=== PATIENT | male | born 1955 | race Caucasian/White ===

== ENCOUNTER → 2019-07-18 10:13 | Outpatient (BNVA) | payer MEDICARE, SELFPAY | PROVIDERS: Family Provider Nurse Practitioner Family; PCP Nurse Practitioner Family; Visit Provider Specialist | DX: G35 Multiple sclerosis (principal) | CPT/HCPCS: 96374; 96375; 96413; 96415; 99214; J1200; J2350; J2930; J7040 ==

== ENCOUNTER 2019-08-16 08:29 | Outpatient (CLI) | payer MEDICARE, SELFPAY ==
--- NOTE | 2019-08-16 08:46 | MR_ITS ---
WS: [id number] MRI BRAIN WITH AND WITHOUT CONTRAST HISTORY: MS COMPARISON: 11/04/2017 and 05/05/2016 TECHNIQUE: Multiplanar imaging performed through the brain with Prohance 16 ml's IV. No acute infarcts. The pericallosal and corpus callosal white matter lesions which are perpendicular are again identified. There is been slight increase in the number of lesions on the LEFT. There is a new nonenhancing white matter lesion in the coronary radiata and also adjacent to the anterior horn o f the LEFT lateral ventricle. None of these lesions enhance. No enhancing masses. No signal abnormali ties noted within the alecia, brainstem or cerebellum. No susceptibility artifacts or prior lacunar infarcts. Ventricles and extra-axial spaces are normal. Clivus and pituitary gland are normal. Visualized posterior fossa and brainstem are also normal. No enhancing masses. Demyelinating lesions are nonenhancing. Dural venous sinuses are normal. Paranasal sinuses: Mucoperiosteal thickening in the maxillary sinuses with maxillary mucous retention cyst. No air-fluid levels. Mastoid air cells: Normal. Calvarium and scalp: Normal. MR/MR head wo/w con [id number] IMPRESSION: 1. Demyelinating plaques consistent with multiple sclerosis. There is a minima l increase in number of demyelinating plaques in the LEFT cerebrum. No enhancem ent. 2. No demyelinating lesions in the brainstem or cerebellum.
--- NOTE | 2019-08-16 08:46 | MR_ITS ---
WS: [id number] MRI CERVICAL SPINE with and without contrast. HISTORY: MS COMPARISON: 11/04/2017 Multiplanar multisequence sagittal imaging is performed with and without IV contrast. Mild LEFT convex curvature of the cervical spine with increase in thoracic kyphosis. Multilevel degen erative disc disease and osteophytosis throughout the cervical spine. There is significant artifact i n the cervical spine probably due to motion and swallowing. Abnormal signal in the anterior cervical cord at this C2 and C3 levels is not as well visualized on t his examination due to the motion. Do not believe there has been a significant progression. No enhanc ement identified. Craniocervical junction, C1 and C2 relationship, odontoid process and soft tissues are normal. C2-C3: Normal. C3-C4: Extensive osteophytic ridging and disc bulging. Osteophyte encroachment upon the ventral theca l sac with mild central and bilateral foraminal narrowing. Nerve roots in the RIGHT foramen are being displaced posteriorly by osteophyte disease. C4-C5: Diffuse osteophytic ridging and disc bulging. Moderate central and severe bilateral foraminal stenosis. C5-C6: Diffuse annular disc bulging and osteophytic ridging. Moderate bilateral foraminal stenosis. C6-C7: Diffuse annular disc bulging and osteophyte disease. Moderate bilateral foraminal narrowing. C7-T1: Annular disc bulging and disc osteophyte complexes. Moderate LEFT and mild RIGHT foraminal sandy nosis. No enhancing lesions are throughout the cervical cord. MR/MR cervical spine wo/w [id number] IMPRESSION: 1. Quality of the examination is limited due to motion. 2. Previously described demyelinating lesions at the C2 and C3 levels have not significantly progressed in size and no new lesions or enhancing lesions are i dentified. Due to the quality of the examination small subtle lesions would eas ryann be obscured. 3. Multilevel disc osteophyte complexes resulting in foraminal and central sandy nosis as above. Very similar to the prior study of 11/04/2017. Most significant s tenosis at C4-5 level.
[2019-08-16 09:50] LABS: Blood Urea Nitrogen 18 mg/dL (8-23); Glomerular Filtration Rate 67.8 mL/min (90-130)
== END 2019-08-16 08:30 | disposition home or self-care (01) ==
LOC: RADWPI 08:33
PROVIDERS: Family Provider Nurse Practitioner Family; PCP Nurse Practitioner Family; Visit Provider Specialist
DX: G35 Multiple sclerosis (principal); M25.78 Osteophyte, vertebrae; M48.02 Spinal stenosis, cervical region
CPT/HCPCS: 70553; 72156; 82565; 84520; A9579

== ENCOUNTER 2020-01-15 08:24 | Outpatient (CLI) | payer MEDICARE, SELFPAY ==
[2020-01-15] MEDS: diphenhydrAMINE 50 mg/mL SDV 1mL 25 MG IVP ×2 (08:50→11:09)
[2020-01-15] MEDS: acetaminophen 500 mg Tablet 1000 MG PO (10:00)
--- NOTE | 2020-01-15 11:03 | PC.NURSE ---
Patient has complaints of itching, no visual rash observed. IV stopped, physician notified. Additional 25 mg Benadryl given IVP by Dr. Traci King over 1 minute. IV Ocrevus re-initiated at 200 mls/hr.
== END 2020-01-15 08:25 | disposition home or self-care (01) ==
LOC: NSACUTE 08:26
PROVIDERS: Family Provider Nurse Practitioner Family; PCP Nurse Practitioner Family; Visit Provider Specialist
DX: G35 Multiple sclerosis (principal); Z87.891 Personal history of nicotine dependence
CPT/HCPCS: 96365; 96366; 96375; 99214; J1200

== ENCOUNTER 2020-07-08 09:03 | Outpatient (CLI) | payer MEDICARE, SELFPAY ==
[2020-07-08] MEDS: acetaminophen 500 mg Tablet 1000 MG PO (09:00)
[2020-07-08] MEDS: diphenhydrAMINE 50 mg/mL SDV 1mL 25 MG IVP (09:30)
== END 2020-07-08 09:04 | disposition home or self-care (01) ==
LOC: NSACUTE 09:05
PROVIDERS: Family Provider Nurse Practitioner Family; PCP Nurse Practitioner Family; Visit Provider Specialist
DX: G35 Multiple sclerosis (principal); M96.1 Postlaminectomy syndrome, not elsewhere classified; Z87.891 Personal history of nicotine dependence
CPT/HCPCS: 96365; 96366; 96375; 99214; J1200; J2350; J2930; J7040

== ENCOUNTER 2020-12-31 06:50 | Outpatient (CLI) | payer MEDICARE, SELFPAY ==
--- NOTE | 2020-12-31 07:15 | MR_ITS ---
WS: [id number] MRI HEAD WITH CONTRAST TECHNIQUE: Sagittal T1, T2 axial, T2 axial FLAIR, axial susceptibility weighted imaging, axial diffus ion weighted images, and coronal T2 images were obtained. Pre and post-T1 axial and post T1 coronal i mages. ADC and FSPGR images. CLINICAL INFORMATION: G35 - Multiple sclerosis COMPARISON: August 2019, November 2017, April 2016 FINDINGS: No evidence restricted diffusion to suggest acute ischemia. Ventricular system and basal cisterns are patent. Moderate patchy supratentorial white matter changes consistent with chronic demyelinating pl aques. The number and distribution of lesions is unchanged from previous. No evidence of progression. Mild diffuse thinning of the corpus callosum is unchanged. No abnormal gadolinium enhancement to ind icate active disease. Moderate T1 hypointense lesion load. Normal optic chiasm and pituitary infundibulum. Mild to moderate symmetric atrophy temporal lobes and hippocampal formations. Moderate parenchymal volume loss. Moderate mucosal thickening paranasal sinu ses. Opacification of the frontal ethmoidal recesses bilaterally. MR/MR head wo/w con [id number] IMPRESSION: 1. Moderate patchy supratentorial white matter changes consistent with chronic demyelinating plaques. 2. Lesion burden is unchanged from previous. No evidence of disease progressio n. 3. Mild diffuse thinning of the corpus callosum. Moderate parenchymal volume l oss. 4. Moderate T1 hypointense lesion load is unchanged. 5. No abnormal gadolinium enhancement to indicate acute disease. 6. No hemosiderin on the susceptibly weighted images.
[2020-12-31] MEDS: gadobenate dimeglumine 20 mL vial IV (08:35)
--- NOTE | 2020-12-31 08:45 | MR_ITS ---
WS: [id number] MRI CERVICAL SPINE NONCONTRAST AND CONTRAST TECHNIQUE: Sagittal T1, T2 and STIR imaging. Axial T2, gradient, and fiesta imaging. Post gadolinium imaging was obtained. CLINICAL INFORMATION: G35 - Multiple sclerosis COMPARISON: August, November 2017, April 2016 FINDINGS: Straightening of the normal cervical lordosis. No high-grade central canal narrowing. Moderate spondy litic changes. Chronic demyelinating plaques in the cervical cord. No significant cord atrophy. Enhan cement at the T1-2 level appears superficial. Chronic demyelinating plaques most prominent dorsal C2 and ventral C3. Visualized upper thoracic cord appears normal. C2-C3: Normal. C3-C4: Disc osteophyte complex with endplate ridging. Mild central canal stenosis. Moderate bilateral bony foraminal narrowing. Mild facet arthropathy. C4-C5: Disc osteophyte complex with endplate ridging. Moderate bilateral bony foraminal narrowing. Mi ld facet arthropathy. Mild central canal stenosis. C5-C6: Disc osteophyte complex with endplate ridging. Moderate left and mild right bony foraminal katie rowing. Mild central canal stenosis. C6-C7: Disc osteophyte complex with endplate ridging. Mild left and no significant right foraminal na rrowing. C7-T1: Left eccentric disc osteophytic ridging. Mild left and no significant right foraminal narrowin g. Spinal canal is patent. Visualized brain stem structures: Normal. Prevertebral soft tissues: Normal. MR/MR cervical spine wo/w [id number] IMPRESSION: 1. Chronic demyelinating plaques in the cervical cord described above. No visu alized new lesions. 2. No significant cord atrophy. 3. No enhancing lesions to indicate active disease. Incidental superficial cor d enhancement at the T1-2 level appears leptomeningeal. 4. Moderate spondylitic changes with mild central canal stenosis C3-C4, C4-C5 and C5-C6. 5. Multilevel bony foraminal narrowing worse at bilateral C3-4, bilateral C4-5 , and left C5-C6.
== END 2020-12-31 06:51 | disposition home or self-care (01) ==
LOC: RADSHAW 06:56
PROVIDERS: PCP Nurse Practitioner Family; Visit Provider Specialist
DX: G35 Multiple sclerosis (principal); M48.02 Spinal stenosis, cervical region
CPT/HCPCS: 70553; 72156; A9577

== ENCOUNTER 2020-12-31 10:54 | Outpatient (CLI) | payer MEDICARE, SELFPAY ==
[2020-12-31] MEDS: acetaminophen 500 mg Tablet 1000 MG PO (11:14)
[2020-12-31] MEDS: diphenhydrAMINE 50 mg/mL SDV 1mL IVP (11:30)
--- NOTE | 2020-12-31 15:14 | PC.NURSE ---
Wrong order was selected. Ocrevus was started and titrated according to guidelines.
== END 2020-12-31 10:55 | disposition home or self-care (01) ==
LOC: NSACUTE 10:59
PROVIDERS: PCP Nurse Practitioner Family; Visit Provider Specialist
DX: G35 Multiple sclerosis (principal); M96.1 Postlaminectomy syndrome, not elsewhere classified; Z87.891 Personal history of nicotine dependence; M48.02 Spinal stenosis, cervical region
CPT/HCPCS: 70553; 72156; 96365; 96366; 96375; 99214; A9577; J1200; J2350; J2930; J7040

== ENCOUNTER 2021-01-15 12:19 | Outpatient (CLI) | payer MEDICARE, SELFPAY ==
--- NOTE | 2021-01-15 12:33 | MR_ITS ---
WS: [id number] MRI THORACIC SPINE WITH CONTRAST TECHNIQUE: Sagittal T1, T2 and STIR imaging. Axial T2 imaging. Post gadolinium imaging was obtained. CLINICAL INFORMATION: G35 - Multiple sclerosis COMPARISON: None. FINDINGS: Mild thoracic curve. Mild thoracic kyphosis. No acute compression fractures. No high-grade central ca nal stenosis. Tiny syrinx within the thoracic core appears unchanged from previous. This measures son roximately 2 mm in maximum AP dimension. No abnormal gadolinium enhancement. Tiny central syrinx exte nding from T4 to T10 unchanged from previous. This is most prominent at T8-T10 measuring 2 mm in maxi mum AP dimension. No abnormal gadolinium enhancement. No enhancing lesions to indicate active disease . Tiny eccentric chronic demyelinating lesion at T3-T4. Mild spondylitic changes thoracic spine. Small disc protrusions more prominent at T7-8, T11-12, and T 12-L1. No significant central canal stenosis. Moderate facet arthropathy lower thoracic spine. Mild b ilateral T10-11, T11-12 and right T12-L1 bony foraminal narrowing. Normal caliber visualized thoracic aorta. MR/MR thoracic spine wo/w [id number] IMPRESSION: 1. Mild thoracic kyphosis. No acute compression fractures. 2. Tiny thoracic cord syrinx most prominent at T8-T10 measuring 2 mm in maximu m AP dimension unchanged from previous. 3. Chronic eccentric demyelinating lesion at T3-4 unchanged. 4. No significant cord atrophy. 5. A few small disc protrusions described above unchanged from previous.
--- NOTE | 2021-01-15 12:33 | MR_ITS ---
WS: [id number] MRI LUMBAR SPINE NONCONTRAST TECHNIQUE: Sagittal T1, T2 and STIR imaging. Axial T1 and T2 imaging. CLINICAL INFORMATION: G35 - Multiple sclerosis COMPARISON: MRI and CT FINDINGS: Mild lumbar curve. No acute compression. Retrolisthesis L2 on L3. Pedicle screw fixation L3-S1. Sever e central canal stenosis L2-3. This is slightly progressed since but not significantly zhang ed. Disc space narrowing at L2-3 has progressed slightly. L1-L2: Normal. L2-L3: Retrolisthesis L2 on L3. Disc desiccation is progressed at this level compared to previous. Se hannah central canal stenosis with moderate facet arthropathy and ligamentum flavum hypertrophy. Severe left and moderate right bony foraminal narrowing. L3-L4: Prior postoperative changes pedicle screw fixation with laminectomy defects. Spinal canal is p atent. Mild to moderate left and no significant right foraminal narrowing. L4-L5: Pedicle screw fixation with laminectomy defects. Disc osteophytic ridging with mild bilateral foraminal narrowing. Moderate facet arthropathy. L5-S1: Pedicle screw fixation. Laminectomy defects. Left eccentric osteophytic ridging. Mild to moder ate left and no significant right foraminal narrowing. Moderate facet arthropathy. Tortuous and slightly aneurysmal abdominal aorta is partially visualized and appears unchanged. This measures approximately 3.0 x 3.1 cm. MR/MR lumbar spine wo con* [id number] IMPRESSION: 1. Prior postoperative changes pedicle screw fixation L3-S1 with laminectomy d efects. 2. Slight retrolisthesis L2 on L3 with severe central canal stenosis appears s lightly progressed compared to previous. Slightly progressed disc desiccation L 2-3. 3. No other significant interval changes. 4. Moderate to severe left L2-3 and mild right L2-3 bony foraminal narrowing. 5. Mild left L3-4 and mild bilateral L4-5 bony foraminal narrowing. 6. Mild to moderate left L5-S1 bony foraminal narrowing.
[2021-01-15] MEDS: gadobenate dimeglumine 20 mL vial IV (13:55)
== END 2021-01-15 12:20 | disposition home or self-care (01) ==
PROVIDERS: PCP Nurse Practitioner Family; Visit Provider Specialist
DX: G35 Multiple sclerosis (principal); M96.1 Postlaminectomy syndrome, not elsewhere classified; M51.24 Other intervertebral disc displacement, thoracic region
CPT/HCPCS: 72148; 72157; A9577

== ENCOUNTER 2021-06-23 09:52 | Outpatient (CLI) | payer MEDICARE, SELFPAY ==
[2021-06-23 10:22] VITALS: BP 134/75; PULSE 60; RESP 18; TEMP 37.1; O2SAT 98
[2021-06-23] MEDS: sodium chloride 0.9% 250 ML 50 ML IV (10:32)
[2021-06-23] MEDS: acetaminophen 500 mg Tablet 1000 MG PO (10:33)
[2021-06-23] MEDS: diphenhydrAMINE 50 mg/mL SDV 1mL 25 MG IV (10:35)
[2021-06-23 11:04] VITALS: BP 121/62; PULSE 57; RESP 16; TEMP 36.9; O2SAT 96
[2021-06-23 11:41] VITALS: BP 120/67; PULSE 56; RESP 16; TEMP 36.8; O2SAT 97
[2021-06-23 13:14] VITALS: BP 121/63; PULSE 60; RESP 16; TEMP 36.8; O2SAT 96
== END 2021-06-23 09:53 | disposition home or self-care (01) ==
LOC: ONCMED 09:58
PROVIDERS: PCP Nurse Practitioner Family; Visit Provider Specialist
DX: G35 Multiple sclerosis (principal); Z87.891 Personal history of nicotine dependence
CPT/HCPCS: 96365; 96366; 96375; 99214; J1200; J2350; J2930; J7040; J7050

== ENCOUNTER 2021-12-30 09:33 | Outpatient (CLI) | payer MEDICARE, MEDICAID, SELFPAY ==
[2021-12-30 09:49] VITALS: BP 119/69; PULSE 63; RESP 18; TEMP 36.8; O2SAT 95
[2021-12-30] MEDS: sodium chloride 0.9% 250 ML 50 ML IV (10:17)
[2021-12-30] MEDS: acetaminophen 500 mg Tablet 1000 MG PO (10:17)
[2021-12-30] MEDS: diphenhydrAMINE 50 mg/mL SDV 1mL 25 MG IVP ×2 (10:19→12:26)
[2021-12-30 10:59] VITALS: BP 115/67; PULSE 56; RESP 18; TEMP 36.7; O2SAT 95
[2021-12-30 11:27] VITALS: BP 119/65; PULSE 57; RESP 18; TEMP 36.9; O2SAT 99
[2021-12-30 12:48] VITALS: BP 128/67; PULSE 67; RESP 18; TEMP 36.8; O2SAT 95
[2021-12-30 13:24] VITALS: BP 113/64; PULSE 63; RESP 18; TEMP 36.7; O2SAT 96
== END 2021-12-30 09:34 | disposition home or self-care (01) ==
PROVIDERS: PCP Nurse Practitioner Family; Visit Provider Specialist
DX: G35 Multiple sclerosis (principal); M48.02 Spinal stenosis, cervical region; Z98.1 Arthrodesis status
CPT/HCPCS: 96365; 96366; 96375; 96376; 99213; 99214; J1200; J2350; J2930; J7040; J7050